=== PATIENT | female | born 2000 | race Caucasian/White ===

== ENCOUNTER 2020-10-13 02:28 | Emergency (ER) | payer MEDICAID ==
[2020-10-13] MEDS ORDERED: Ondansetron 4 MG/2 ML SDV IVPUSH ONE (02:46)
[2020-10-13] MEDS ORDERED: Sodium Chloride 0.9% 10 ML Syringe FLUSH PRN (02:46)
[2020-10-13] MEDS ORDERED: Sodium Chloride 0.9% 1,000 ML IV SCH (03:00)
--- NOTE | 2020-10-13 03:09 | EDM.PDOC ---
ED HPI GENERAL MEDICAL PROBLEM - General Chief Complaint: Abdominal Pain Stated Complaint: ABDOMINAL PAIN VOMITING Time Seen by Provider: 10/13/20 02:47 Source of Information: Reports: Patient, RN Notes Reviewed - History of Present Illness INITIAL COMMENTS - FREE TEXT/NARRATIVE: 20 yr old female with onset of vomiting and diarrhea yesterday. That continues early this morning. She thinks she is about 6 wks . Has had preg. test confirmed at the clinic. She is . Mouth feels dry. She does feel somewhat lightheaded when standing. Right Abdomen Pain Score (Numeric/FACES): 7 - Related Data Allergies Allergy/AdvReac Type Severity Reaction Status Date / Time amoxicillin Allergy Rash Verified 10/13/20 02:43 Past Medical History - Past Health History Medical/Surgical History: Denies Medical/Surgical History Social & Family History - Tobacco Use Tobacco Use Status *Q: Never Tobacco User Second Hand Smoke Exposure: No - Caffeine Use Caffeine Use: Reports: Coffee - Recreational Drug Use Recreational Drug Use: No ED ROS GENERAL - Review of Systems Review Of Systems: See Below Constitutional: Denies: Fever, Chills HEENT: Reports: Other (mouth is dry) Respiratory: Denies: Shortness of Breath Cardiovascular: Denies: Chest Pain GI/Abdominal: Reports: Abdominal Pain (occasional cramping), Diarrhea (satery) Musculoskeletal: Reports: No Symptoms Skin: Reports: No Symptoms Neurological: Reports: Dizziness ED EXAM, GI/ABD - Physical Exam Exam: See Below General Appearance: Alert, No Apparent Distress Head: Atraumatic Neck: Supple Respiratory/Chest: No Respiratory Distress, Lungs Clear, Normal Breath Sounds Cardiovascular: Regular Rate, Rhythm GI/Abdominal Exam: Soft, Tender (mild mid epigastric tenderness). No: Guarding, Rebound Back Exam: No: CVA Tenderness (L), CVA Tenderness (R) Extremities: Normal Inspection Neurological: Alert, Oriented, No Motor/Sensory Deficits Skin Exam: Warm, Dry, Normal Color Course - Vital Signs Last Recorded V/S: Last Vital Signs Temp 97.5 F 10/13/20 02:38 Pulse 83 10/13/20 02:38 Resp 20 10/13/20 02:38 BP 129/72 10/13/20 02:38 Pulse Ox 100 10/13/20 02:38 - Orders/Labs/Meds Orders: Active Orders 24 hr Category Date Time Status Peripheral IV Care [RC] . DIRECTED Care 10/13/20 02:47 Active Sodium Chloride 0.9% [Normal Saline] 1,000 ml Med 10/13/20 03:00 Active IV ONETIME Sodium Chloride 0.9% [Saline Flush] Med 10/13/20 02:46 Active 10 ml FLUSH ASDIRECTED PRN Peripheral IV Insertion Adult [OM.PC] Stat Oth 10/13/20 02:46 Ordered Medication Orders Sodium Chloride (Normal Saline) 1,000 mls @ 999 mls/hr IV ONETIME CALLIE Last Admin: 10/13/20 03:10 Dose: 999 mls/hr Documented by: [id number] Sodium Chloride (Saline Flush) 10 ml FLUSH ASDIRECTED PRN PRN Reason: Keep Vein Open Last Admin: 10/13/20 03:10 Dose: 10 ml Documented by: [id number] Meds: Medications Generic Name Dose Route Start Last Admin Trade Name Freq PRN Reason Stop Dose Admin Sodium Chloride 1,000 mls @ 999 mls/hr 10/13/20 03:00 10/13/20 03:10 Normal Saline IV 999 mls/hr ONETIME CALLIE Administration Sodium Chloride 10 ml 10/13/20 02:46 10/13/20 03:10 Saline Flush FLUSH 10 ml ASDIRECTED PRN Administration Keep Vein Open Discontinued Medications Generic Name Dose Route Start Last Admin Trade Name Freq PRN Reason Stop Dose Admin Ondansetron HCl 4 mg 10/13/20 02:46 10/13/20 03:10 Zofran IVPUSH 10/13/20 02:47 4 mg ONETIME ONE Administration - Re-Assessments/Exams Free Text/Narrative Re-Assessment/Exam: 10/13/20 04:27 Feeling better after 1 liter IV fluid, she has already voided, discharge instr. as documented. Departure - Departure Time of Disposition: 04:18 Disposition: Home, Self-Care 01 Condition: Fair Clinical Impression: First trimester Diarrhea Qualifiers: Diarrhea type: unspecified type Qualified Code(s): R19.7 - Diarrhea, unspecified Vomiting Qualifiers: Vomiting type: unspecified Vomiting Intractability: unspecified Nausea presence: unspecified Qualified Code(s): R11.10 - Vomiting, unspecified - Discharge Information Instructions: First Trimester of , [id number] Referrals: PCP,None [Primary Care Provider] - Forms: ED Department Discharge Additional Instructions: Rest. Clear liquids only until this afternoon. Than very careful bland diet as tolerated. Probiotic supplement available OTC twice daily for 3 to 5 days will help you get over the diarrhea more quickly. Follow up clinic as needed. Return to ED as needed if symptoms worsening in any way. Sepsis Event Note (ED) - Evaluation Sepsis Screening Result: No Definite Risk - Focused Exam Vital Signs: Vital Signs Temp Pulse Resp BP Pulse Ox 10/13/20 02:38 97.5 F 83 20 129/72 100 - My Orders Last 24 Hours: My Active Orders 10/13/20 02:46 Sodium Chloride 0.9% [Saline Flush] 10 ml FLUSH ASDIRECTED PRN Peripheral IV Insertion Adult [OM.PC] Stat 10/13/20 02:47 Peripheral IV Care [RC] . DIRECTED 10/13/20 03:00 Sodium Chloride 0.9% [Normal Saline] 1,000 ml IV ONETIME - Assessment/Plan Last 24 Hours: My Active Orders 10/13/20 02:46 Sodium Chloride 0.9% [Saline Flush] 10 ml FLUSH ASDIRECTED PRN Peripheral IV Insertion Adult [OM.PC] Stat 10/13/20 02:47 Peripheral IV Care [RC] . DIRECTED 10/13/20 03:00 Sodium Chloride 0.9% [Normal Saline] 1,000 ml IV ONETIME
== END 2020-10-13 04:25 | disposition home or self-care (01) ==
LOC: JD.ED 02:28
DX: O99.891 Other specified diseases and conditions complicating pregnancy (principal); R19.7 Diarrhea, unspecified; R11.10 Vomiting, unspecified; R10.13 Epigastric pain; R42 Dizziness and giddiness; Z88.0 Allergy status to penicillin; Z3A.01 Less than 8 weeks gestation of pregnancy
CPT/HCPCS: 96374; 99283; J2405; J7030; 99284

== ENCOUNTER 2020-10-17 15:42 | Emergency (ER) | payer MEDICAID, OTHER ==
[2020-10-17] MEDS ORDERED: Ondansetron 4 MG/2 ML SDV IVPUSH ONE (16:11)
[2020-10-17] MEDS ORDERED: HYDROmorphone 0.5 MG/0.5 ML Syringe IVPUSH ONE ×2 (16:11→17:59)
--- NOTE | 2020-10-17 16:12 | EDM.PDOC ---
ED HPI GENERAL MEDICAL PROBLEM - General Chief Complaint: Gastrointestinal Problem Stated Complaint: VOMITING AND HEAD ACHES Time Seen by Provider: 10/17/20 16:09 Source of Information: Reports: Patient History Limitations: Reports: No Limitations - History of Present Illness INITIAL COMMENTS - FREE TEXT/NARRATIVE: 20-year-old female presents to the ED complaining of a diffuse occipital parietal headache associate with recurrent nausea and vomiting x2 days. Patient is known to be with last normal menstrual period felt to be around the end of July she believes August 09 but this. Was atypical and that it lasted only 3 days. Her cycles have usually been very regular. She is due to see her [facility] in a week's time. She started having nausea and vomiting a week ago and continues to have nausea and vomiting. She has not kept anything down for 48 hours. She is therefore feeling weak dizzy and lightheaded. She did have some spotting per vagina a few weeks ago but it only lasted for 1 day. She is 1 para 0. No previous abdominal surgery. No bleeding per vagina at this time. Emesis contains mostly bile salts. Sometimes just dry heaving. Onset: Gradual Onset Date: 10/15/20 (Diffuse headache for 48 hours associate with recurrent nausea and vomiting) Duration: Day(s):, Constant, Waxing/Waning Location: Reports: Head (Use occipital headache.) Quality: Reports: Ache, Throbbing Severity: Moderate Improves with: Reports: None Worsens with: Reports: Other (. Bending over.) Associated Symptoms: Reports: Headaches, Loss of Appetite, Malaise, Nausea/Vomiting. 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.) - Related Data Allergies Allergy/AdvReac Type Severity Reaction Status Date / Time amoxicillin Allergy Severe Rash Verified 10/20/20 08:31 Home Meds: Home Meds Lactobacillus Acidophilus [Probiotic] 1 tab PO DAILY 10/17/20 [History] Vits #93/Iron Fum/FA [ Formula Tablet] 1 tab PO DAILY 10/17/20 [History] Ondansetron [Zofran ODT] 1 tab SL Q6HR PRN 10/20/20 [History] Past Medical History - Past Health History Medical/Surgical History: Denies Medical/Surgical History [facility] History: Reports: Social & Family History - Family History Family Medical History: No Pertinent Family History - Tobacco Use Tobacco Use Status *Q: Never Tobacco User - Caffeine Use Caffeine Use: Reports: Coffee - Recreational Drug Use Recreational Drug Use: No - Living Situation & Occupation Living situation: Reports: Single Occupation: Unemployed ED ROS GENERAL - Review of Systems Review Of Systems: See Below Constitutional: Reports: Malaise, Weakness, Fatigue, Decreased Appetite, Weight Loss. Denies: Fever, Chills HEENT: Reports: No Symptoms Respiratory: Reports: No Symptoms Cardiovascular: Reports: No Symptoms Endocrine: Reports: Fatigue GI/Abdominal: Reports: Diarrhea (1 loose yellow diarrhea stool today.), Nausea ( Probably starvation stool.), Vomiting (Bilious emesis.) : Reports: Frequency Musculoskeletal: Reports: No Symptoms Skin: Reports: No Symptoms Neurological: Reports: Headache (Diffuse throbbing pounding headache parieto- occipital lobes bilaterally) Psychiatric: Reports: No Symptoms Hematologic/Lymphatic: Reports: No Symptoms Immunologic: Reports: No Symptoms ED EXAM - Physical Exam Exam: See Below Exam Limited By: No Limitations General Appearance: Alert, WD/WN, No Apparent Distress, Other (Temperature is 36.6. Heart rate 87 and sinus respiratory is 14 with O2 sats 100% room air BP 126/69.) Eye Exam: Bilateral Eye: Normal Inspection (No scleral icterus or blepharal pallor.), PERRL Throat/Mouth: Other Head: Atraumatic (Tongue is mildly dry and coated.), Normocephalic Neck: Normal Inspection, Supple, Non-Tender, Full Range of Motion. No: Carotid Bruit, Lymphadenopathy (L), Lymphadenopathy (R), Thyromegaly Respiratory/Chest: No Respiratory Distress, Lungs Clear, Normal Breath Sounds, No Accessory Muscle Use Cardiovascular: Normal Peripheral Pulses, Regular Rate, Rhythm, No Edema, No Gallop, No Murmur, No Rub GI/Abdominal Exam: Normal Bowel Sounds, Soft, Non-Tender, No Organomegaly, No Abnormal Bruit, No Mass, Pelvis Stable, Other (Uterine fundus is not palpable abdominally.) Heart Tones: Not [place] Movement: Not Appreciated Back Exam: Normal Inspection, Full Range of Motion. No: CVA Tenderness (L), CVA Tenderness (R) Extremities: Normal Inspection, Normal Range of Motion, Non-Tender, No Pedal Edema Neurological: Alert, Oriented, CN II-XII Intact, Normal Cognition Psychiatric: Normal Affect, Normal Mood Skin Exam: Warm, Dry, Intact, Normal Color, No Rash Course - Vital Signs Last Recorded V/S: Last Vital Signs Temp 36.6 C 10/17/20 15:55 Pulse 100 10/17/20 18:32 Resp 12 10/17/20 18:32 BP 109/52 L 10/17/20 18:32 Pulse Ox 100 10/17/20 18:32 - Orders/Labs/Meds Labs: Laboratory Tests 10/17/20 10/17/20 10/17/20 Range/Units 16:30 16:30 16:30 WBC 11.59 H (3.98-10.04) K/mm3 RBC 4.76 (3.98-5.22) M/mm3 Hgb 13.5 (11.2-15.7) gm/dl Hct 40.1 (34.1-44.9) % MCV 84.2 (79.4-94.8) fl MCH 28.4 (25.6-32.2) pg MCHC 33.7 (32.2-35.5) g/dl RDW Std Deviation 43.5 (36.4-46.3) fL Plt Count 360 (182-369) K/mm3 MPV 10.4 (9.4-12.3) fl Neut % (Auto) 66.7 (34.0-71.1) % Lymph % (Auto) 24.2 (19.3-51.7) % Long % (Auto) 8.2 (4.7-12.5) % Eos % (Auto) 0.4 L (0.7-5.8) Baso % (Auto) 0.3 (0.1-1.2) % Neut # (Auto) 7.72 H (1.56-6.13) K/mm3 Lymph # (Auto) 2.81 (1.18-3.74) K/mm3 Long # (Auto) 0.95 H (0.24-0.36) K/mm3 Eos # (Auto) 0.05 (0.04-0.36) K/mm3 Baso # (Auto) 0.04 (0.01-0.08) K/mm3 Manual Slide Review Normal smear Sodium 135 L (136-145) mEq/L Potassium 3.8 (3.5-5.1) mEq/L Chloride 101 (98-107) mEq/L Carbon Dioxide 25 (21-32) mEq/L Anion Gap 12.8 (5-15) BUN 9 (7-18) mg/dL Creatinine 0.6 (0.55-1.02) mg/dL Est Cr Clr Drug Dosing 140.01 mL/min Estimated GFR (MDRD) > 60 (>60) mL/min BUN/Creatinine Ratio 15.0 (14-18) Glucose 102 (74-106) mg/dL Calcium 9.5 (8.5-10.1) mg/dL Total Bilirubin 0.2 (0.2-1.0) mg/dL AST 13 L (15-37) U/L ALT 19 (14-59) U/L Alkaline Phosphatase 79 (46-116) U/L Total Protein 7.8 (6.4-8.2) g/dl Albumin 3.6 (3.4-5.0) g/dl Globulin 4.2 gm/dL Albumin/Globulin Ratio 0.9 L (1-2) HCG, Quant 50600.0 mIU/mL Urine Color (Yellow) Urine Appearance (Clear) Urine pH (5.0-8.0) Ur Specific [place] (1.005-1.030) Urine Protein (Negative) Urine Glucose (UA) (Negative) Urine Ketones (Negative) Urine Occult Blood (Negative) Urine Nitrite (Negative) Urine Bilirubin (Negative) Urine Urobilinogen (0.2-1.0) Ur Leukocyte Esterase (Negative) Urine RBC (0-5) /hpf Urine WBC (0-5) /hpf Ur Squamous Epith Cells (0-5) /hpf Urine Bacteria (FEW) /hpf Urine Mucus (FEW) /hpf 10/17/20 Range/Units 16:42 WBC (3.98-10.04) K/mm3 RBC (3.98-5.22) M/mm3 Hgb (11.2-15.7) gm/dl Hct (34.1-44.9) % MCV (79.4-94.8) fl MCH (25.6-32.2) pg MCHC (32.2-35.5) g/dl RDW Std Deviation (36.4-46.3) fL Plt Count (182-369) K/mm3 MPV (9.4-12.3) fl Neut % (Auto) (34.0-71.1) % Lymph % (Auto) (19.3-51.7) % Long % (Auto) (4.7-12.5) % Eos % (Auto) (0.7-5.8) Baso % (Auto) (0.1-1.2) % Neut # (Auto) (1.56-6.13) K/mm3 Lymph # (Auto) (1.18-3.74) K/mm3 Long # (Auto) (0.24-0.36) K/mm3 Eos # (Auto) (0.04-0.36) K/mm3 Baso # (Auto) (0.01-0.08) K/mm3 Manual Slide Review Sodium (136-145) mEq/L Potassium (3.5-5.1) mEq/L Chloride (98-107) mEq/L Carbon Dioxide (21-32) mEq/L Anion Gap (5-15) BUN (7-18) mg/dL Creatinine (0.55-1.02) mg/dL Est Cr Clr Drug Dosing mL/min Estimated GFR (MDRD) (>60) mL/min BUN/Creatinine Ratio (14-18) Glucose (74-106) mg/dL Calcium (8.5-10.1) mg/dL Total Bilirubin (0.2-1.0) mg/dL AST (15-37) U/L ALT (14-59) U/L Alkaline Phosphatase (46-116) U/L Total Protein (6.4-8.2) g/dl Albumin (3.4-5.0) g/dl Globulin gm/dL Albumin/Globulin Ratio (1-2) HCG, Quant mIU/mL Urine Color Yellow (Yellow) Urine Appearance Clear (Clear) Urine pH 7.0 (5.0-8.0) Ur Specific [place] 1.025 (1.005-1.030) Urine Protein Negative (Negative) Urine Glucose (UA) Negative (Negative) Urine Ketones Negative (Negative) Urine Occult Blood Trace-intact H (Negative) Urine Nitrite Negative (Negative) Urine Bilirubin Negative (Negative) Urine Urobilinogen 0.2 (0.2-1.0) Ur Leukocyte Esterase Negative (Negative) Urine RBC 0-5 (0-5) /hpf Urine WBC Not seen (0-5) /hpf Ur Squamous Epith Cells 10-20 H (0-5) /hpf Urine Bacteria Rare (FEW) /hpf Urine Mucus Not seen (FEW) /hpf Meds: Medications Discontinued Medications Generic Name Dose Route Start Last Admin Trade Name Dari PRN Reason Stop Dose Admin Hydromorphone HCl 0.5 mg 10/17/20 16:11 10/17/20 16:44 Dilaudid IVPUSH 10/17/20 16:12 0.5 mg ONETIME ONE Administration Hydromorphone HCl 0.5 mg 10/17/20 17:59 10/17/20 18:04 Dilaudid IVPUSH 10/17/20 18:00 0.5 mg ONETIME ONE Administration Dextrose/Lactated Ringer's 1,000 mls @ 999 mls/hr 10/17/20 16:15 10/17/20 16:44 Dextrose 5%-Lactated Ringers IV 999 mls/hr ASDIRECTED CALLIE Administration Metoclopramide HCl 5 mg 10/17/20 17:58 10/17/20 18:04 Reglan IVPUSH 10/17/20 17:59 5 mg ONETIME ONE Administration Ondansetron HCl 4 mg 10/17/20 16:11 10/17/20 16:44 Zofran IVPUSH 10/17/20 16:12 4 mg ONETIME ONE Administration - Radiology Interpretation Free Text/Narrative:: 20-year-old female presents to the ED with intractable nausea and vomiting x48 hours and diffuse headache primarily contained to the occipital and parietal scalp bilaterally. Patient is known to be with her first . Last menstrual period estimated be around August 09. She has yet to see her [facility]. She did have some spotting bleeding per vagina 3 weeks ago but it only lasted 1 day. Nausea and vomiting started about a week and a half ago. Has not been able to keep anything down for 48 hours. Clinically does not appear to be that volume depleted. Plan IV D5 Ringer's lactate at open. Given Zofran 4 mg IV and Dilaudid 0.5 mg IV for headache and nausea relief. Routine labs including a quantitative beta-hCG to be done. - Re-Assessments/Exams Free Text/Narrative Re-Assessment/Exam: 10/17/20 17:34 White count is 11.59 with 66.7% neutrophils on the auto differential. Hemoglobin is 13.5 with hematocrit of 40.1. Platelet counts 360,000. Sodium is slightly low at 135 with a potassium maintained at 3.8. Chloride 101 with a bicarb of 25. Anion gap is 12.8. BUN is 9 with a creatinine of 0.6 and a GFR greater than 60. Glucose is 102 calcium 9.5 . Liver function is normal. Albumin is 3.6. Quantitative beta-hCG is 42,446. Urinalysis shows trace of occult blood with 10-20 squamous epithelial cells but no signs of infection. 10/17/20 17:59 She reports that her headache is still 7 out of 10. She remains mildly nauseated as well. Therefore going to give her Reglan 5 mg IV and repeat the Dilaudid 0.5 mg IV. She was reassured that her lab tests are all within normal range. Her quantitative beta-hCG suggest the is between 6 and 8 weeks gestation. She has an appointment to see [facility] on Sunday of this coming week. An ultrasound could be done at that time to establish dates. Prescription written for your [employer] machine for Zofran 4 mg sublingual every 4-6 hours as needed for nausea relief x10 tablets. Departure - Departure Time of Disposition: 18:34 Disposition: Home, Self-Care 01 Condition: Fair Clinical Impression: Nausea/vomiting in - Discharge Information *PRESCRIPTION DRUG MONITORING PROGRAM REVIEWED*: Not Applicable *COPY OF PRESCRIPTION DRUG MONITORING REPORT IN PATIENT ARNULFO: Not Applicable Instructions: Nausea and Vomiting, Adult, [id number], Morning Sickness Referrals: PCP,None [Primary Care Provider] - Forms: ED Department Discharge Additional Instructions: Evaluation in the emergency room today in regards to persistent nausea and vomiting over the last 48 hours with development of a diffuse posterior headache. Known to be at approximately 6 to 7 weeks gestation based on quantitative beta-hCG. It appears that period end of July was clean the last known menstrual period. Lab test did not confirm any significant dehydr ation or electrolyte imbalance in spite of vomiting. You were taking adequate fluids. You were treated in the ED with a liter of IV fluids to reprovide rehydration. Given Dilaudid 0.5 mg x 2 doses an hour and a half apart for headache relief and Zofran 4 mg IV initially for nausea relief and then Reglan 5 mg IV for nausea relief. Nausea and vomiting is felt to be secondary to . Prescription has been written for Zofran that you may take under your tongue every 4-6 hours as needed for nausea relief. Strongly suggest taking 6 or 7 meals per day almost every 2 hours trying to keep a little something in your stomach at all times. Suggest taking 2 crackers first thing in the morning before even getting out of bed. Keeping a little something in her stomach throughout the day usually will keep the nausea and vomiting of at bay. Follow-up with [facility] at the end of this week on Sunday as planned. Sepsis Event Note (ED) - Evaluation Sepsis Screening Result: No Definite Risk
[2020-10-17] MEDS ORDERED: Dextrose 5%-Lactated Ringers 1,000 ML IV SCH (16:15)
[2020-10-17] MEDS ORDERED: Metoclopramide 10 MG/2 ML SDV IVPUSH ONE (17:58)
== END 2020-10-17 18:35 | disposition home or self-care (01) ==
LOC: JD.ED 15:42
DX: O21.9 Vomiting of pregnancy, unspecified (principal); Z88.1 Allergy status to other antibiotic agents; Z3A.08 8 weeks gestation of pregnancy
CPT/HCPCS: 36415; 80053; 81001; 84702; 85025; 96374; 96375; 96376; 99284; J1170; J2405; J2765; J7121; 99283

== ENCOUNTER 2020-10-20 08:17 | Emergency (ER) | payer OTHER ==
[2020-10-20] MEDS ORDERED: Sodium Chloride 0.9% 1,000 ML IV ONE (08:56)
[2020-10-20] MEDS ORDERED: Ondansetron 4 MG/2 ML SDV IVPUSH ONE (08:56)
[2020-10-20] MEDS ORDERED: HYDROmorphone 0.5 MG/0.5 ML Syringe IVPUSH ONE (08:56)
--- NOTE | 2020-10-20 08:59 | EDM.PDOC ---
ED HPI GENERAL MEDICAL PROBLEM - General Chief Complaint: Gastrointestinal Problem Stated Complaint: 6 WEEKS PG/HEADACHE/VOMITTING/DIARRHEA Time Seen by Provider: 10/20/20 08:45 Source of Information: Reports: Patient History Limitations: Reports: No Limitations - History of Present Illness INITIAL COMMENTS - FREE TEXT/NARRATIVE: 20-year-old 1 para 0 female comes to the ED with complaints of nausea vomiting, headache, diarrhea, and cramping which she states has been going on for about 3 weeks now. She states she was spotting lightly last week, but that this has now stopped. She states that she is unable to keep any food or drink down and is soon as she eats she vomits and then has diarrhea and develops a severe headache with the vomiting. She does have a prescription for Zofran for which I asked her when she takes this and she states she takes it just before eating. I did educate her that she needs to take this and wait half an hour to 45 minutes and then attempt to eat as she needs to give the medication time to work. She did wake up this morning at about 3 AM and was hungry and tried to eat a bowl of oatmeal for which she immediately vomited it all up, she did take Zofran just prior to that. She does have her first OB appointment with Dr. Pacheco in 2 days. Middle Abdomen Pain Score (Numeric/FACES): 8 - Related Data Allergies Allergy/AdvReac Type Severity Reaction Status Date / Time amoxicillin Allergy Severe Rash Verified 10/20/20 08:31 Home Meds: Home Meds Lactobacillus Acidophilus [Probiotic] 1 tab PO DAILY 10/17/20 [History] Vits #93/Iron Fum/FA [ Formula Tablet] 1 tab PO DAILY 10/17/20 [History] Ondansetron [Zofran ODT] 1 tab SL Q6HR PRN 10/20/20 [History] Past Medical History - Past Health History Medical/Surgical History: Denies Medical/Surgical History [employer] History: Reports: Social & Family History - Family History Family Medical History: No Pertinent Family History - Tobacco Use Tobacco Use Status *Q: Never Tobacco User - Caffeine Use Caffeine Use: Reports: Coffee - Recreational Drug Use Recreational Drug Use: No - Living Situation & Occupation Living situation: Reports: Single Occupation: Unemployed ED ROS GENERAL - Review of Systems Review Of Systems: See Below Constitutional: Denies: Fever, Chills, Malaise, Weakness, Decreased Appetite HEENT: Reports: No Symptoms. Denies: Throat Pain, Vision Change Respiratory: Reports: No Symptoms Cardiovascular: Reports: No Symptoms Endocrine: Reports: No Symptoms GI/Abdominal: Reports: Abdominal Pain (Described as cramping with diarrhea), Diarrhea, Nausea, Vomiting. Denies: Black Stool, Bloody Stool, Constipation, Decreased Appetite : Reports: No Symptoms Musculoskeletal: Reports: No Symptoms Skin: Reports: No Symptoms Neurological: Reports: Headache (That is brought on with vomiting). Denies: Confusion, Dizziness, Numbness, Syncope, Tingling Psychiatric: Reports: No Symptoms Hematologic/Lymphatic: Reports: No Symptoms Immunologic: Reports: No Symptoms ED EXAM - Physical Exam Exam: See Below Exam Limited By: No Limitations General Appearance: Alert, WD/WN, No Apparent Distress Eye Exam: Bilateral Eye: EOMI, PERRL Head: Atraumatic, Normocephalic Neck: Normal Inspection, Supple. No: Lymphadenopathy (L), Lymphadenopathy (R) Respiratory/Chest: No Respiratory Distress, Lungs Clear, Normal Breath Sounds, Chest Non-Tender Cardiovascular: Normal Peripheral Pulses, Regular Rate, Rhythm, No Edema, No Murmur GI/Abdominal Exam: Normal Bowel Sounds, Soft, Non-Tender Rectal Exam: Deferred (Female) Exam: Other (Deferred) Back Exam: Normal Inspection, Full Range of Motion Extremities: Normal Inspection, Normal Range of Motion, No Pedal Edema, Normal Capillary Refill Neurological: Alert, Oriented, Normal Cognition Psychiatric: Normal Affect, Normal Mood Skin Exam: Warm, Dry, Intact, Normal Color Lymphatic: No Adenopathy Course - Vital Signs Last Recorded V/S: Last Vital Signs Temp 96.7 F L 10/20/20 08:27 Pulse 92 10/20/20 08:27 Resp 16 10/20/20 08:27 BP 123/73 10/20/20 08:27 Pulse Ox 98 10/20/20 08:27 - Orders/Labs/Meds Orders: Active Orders 24 hr Category Date Time Status BETA-HCG, QUANT TUMOR MARKER [REF] Stat Lab 10/20/20 09:07 Stop Req HCG QUANTITATIVE [CHEM] Stat Lab 10/20/20 09:07 Received Labs: Laboratory Tests 10/20/20 10/20/20 10/20/20 Range/Units 09:07 09:07 10:18 WBC 9.45 (3.98-10.04) K/mm3 RBC 4.70 (3.98-5.22) M/mm3 Hgb 13.2 (11.2-15.7) gm/dl Hct 39.8 (34.1-44.9) % MCV 84.7 (79.4-94.8) fl MCH 28.1 (25.6-32.2) pg MCHC 33.2 (32.2-35.5) g/dl RDW Std Deviation 43.4 (36.4-46.3) fL Plt Count 331 (182-369) K/mm3 MPV 10.0 (9.4-12.3) fl Neut % (Auto) 71.5 H (34.0-71.1) % Lymph % (Auto) 21.0 (19.3-51.7) % [place] % (Auto) 6.6 (4.7-12.5) % Eos % (Auto) 0.3 L (0.7-5.8) Baso % (Auto) 0.4 (0.1-1.2) % Neut # (Auto) 6.76 H (1.56-6.13) K/mm3 Lymph # (Auto) 1.98 (1.18-3.74) K/mm3 [place] # (Auto) 0.62 H (0.24-0.36) K/mm3 Eos # (Auto) 0.03 L (0.04-0.36) K/mm3 Baso # (Auto) 0.04 (0.01-0.08) K/mm3 Sodium 134 L (136-145) mEq/L Potassium 3.9 (3.5-5.1) mEq/L Chloride 102 (98-107) mEq/L Carbon Dioxide 24 (21-32) mEq/L Anion Gap 11.9 (5-15) BUN 7 (7-18) mg/dL Creatinine 0.7 (0.55-1.02) mg/dL Est Cr Clr Drug Dosing 120.01 mL/min Estimated GFR (MDRD) > 60 (>60) mL/min BUN/Creatinine Ratio 10.0 L (14-18) Glucose 95 (74-106) mg/dL Calcium 9.5 (8.5-10.1) mg/dL Urine Color Yellow (Yellow) Urine Appearance Clear (Clear) Urine pH 7.5 (5.0-8.0) Ur Specific [place] 1.020 (1.005-1.030) Urine Protein Trace H (Negative) Urine Glucose (UA) Negative (Negative) Urine Ketones Negative (Negative) Urine Occult Blood Negative (Negative) Urine Nitrite Negative (Negative) Urine Bilirubin Negative (Negative) Urine Urobilinogen 0.2 (0.2-1.0) Ur Leukocyte Esterase Negative (Negative) Urine RBC Not seen (0-5) /hpf Urine WBC 0-5 (0-5) /hpf Ur Epithelial Cells 0-5 (0-5) /hpf Urine Bacteria Few (FEW) /hpf Urine Mucus Few (FEW) /hpf Meds: Medications Discontinued Medications Generic Name Dose Route Start Last Admin Trade Name Freq PRN Reason Stop Dose Admin Hydromorphone HCl 0.5 mg 10/20/20 08:56 10/20/20 09:34 Dilaudid IVPUSH 10/20/20 08:57 0.5 mg ONETIME ONE Administration Sodium Chloride 1,000 mls @ 999 mls/hr 10/20/20 08:56 10/20/20 09:33 Normal Saline IV 10/20/20 09:56 999 mls/hr ONETIME ONE Administration Metoclopramide HCl 5 mg 10/20/20 10:43 10/20/20 10:57 Reglan IVPUSH 10/20/20 10:44 5 mg ONETIME ONE Administration Ondansetron HCl 4 mg 10/20/20 08:56 10/20/20 09:34 Zofran IVPUSH 10/20/20 08:57 4 mg ONETIME ONE Administration - Re-Assessments/Exams Free Text/Narrative Re-Assessment/Exam: 10/20/20 09:32 I have ordered a CBC, BMP, hCG quantitative, UA, normal saline 1 L bolus, Zofran 4 mg, and 1/2 mg of Dilaudid. 10/20/20 10:44 Upon reassessment patient reports that her headache pain is better, but she still has nausea. I have ordered Reglan 5 mg IV x1 dose now. 10/20/20 11:21 Patient states that since receiving Reglan IV that nausea is almost gone. Quantitative hCG analyzer is down at this time in the lab. Will notify the patient of any abnormal results. I have notified her of this and she is agreeing to discharge. Departure - Departure Time of Disposition: 11:22 Disposition: Home, Self-Care 01 Condition: Good Clinical Impression: Vomiting, Diarrhea, Nausea/vomiting in Diarrhea Qualifiers: Diarrhea type: unspecified type Qualified Code(s): R19.7 - Diarrhea, unspecified - Discharge Information Referrals: PCP,None [Primary Care Provider] - Forms: ED Department Discharge Additional Instructions: He was seen in the emergency department for complaints of nausea, vomiting, diarrhea, and headache related to . Urinalysis and lab work were unremarkable. Quantitative hCG was collected however the analyzer in the lab is down, you will be notified if the results of this are abnormal. Discharge to home on a very bland diet. Take your Zofran 30 to 45 minutes prior to meals to allow it time to work to prevent nausea and vomiting. Also continue taking probiotic which is recommended at previous visit. Please keep your appointment with your OB doctor on Sunday. Should your condition worsen or change follow-up with primary care provider or return to the emergency department. Sepsis Event Note (ED) - Evaluation Sepsis Screening Result: No Definite Risk - Focused Exam Vital Signs: Vital Signs Temp Pulse Resp BP Pulse Ox 10/20/20 08:27 96.7 F L 92 16 123/73 98 - My Orders Last 24 Hours: My Active Orders 10/20/20 09:07 BETA-HCG, QUANT TUMOR MARKER [REF] Stat HCG QUANTITATIVE [CHEM] Stat - Assessment/Plan Last 24 Hours: My Active Orders 10/20/20 09:07 BETA-HCG, QUANT TUMOR MARKER [REF] Stat HCG QUANTITATIVE [CHEM] Stat
[2020-10-20] MEDS ORDERED: Metoclopramide 10 MG/2 ML SDV IVPUSH ONE (10:43)
== END 2020-10-20 11:50 | disposition home or self-care (01) ==
LOC: JD.ED 08:17
DX: O21.9 Vomiting of pregnancy, unspecified (principal); O99.891 Other specified diseases and conditions complicating pregnancy; R19.7 Diarrhea, unspecified; Z88.1 Allergy status to other antibiotic agents; Z3A.01 Less than 8 weeks gestation of pregnancy
CPT/HCPCS: 36415; 80048; 81001; 84702; 85025; 96374; 96375; 99284; 99284-25; J1170; J2405; J2765; J7030